=== PATIENT | female | born 2000 | race Two or more races ===

== ENCOUNTER 2024-04-12 19:13 | Emergency (ER) | payer MEDICAID, OTHER ==
[~2024-04-12] VITALS: Ht 157.5 cm; Wt 67.7 kg
[2024-04-12 20:36] LABS: Basophils # (auto) 0.1 10 ^3/uL (0-0.2); Basophils % (auto) 1.1 % (0.0-2.0); Eosinophils # (auto) 0.1 10 ^3/uL (0-0.8); Eosinophils % (auto) 0.5 % (0.0-7.0); Hematocrit 38.3 % (36.0-46.0); Hemoglobin 12.6 g/dL (12.2-16.2); Lymphocytes # (auto) 2.1 10 ^3/uL (0.4-5.4); Lymphocytes % (auto) 18.9 % (10.0-50.0); Mean Corpuscular Hemoglobin 27.7 pg (28.0-32.0); Mean Corpuscular Hgb Conc. 32.8 g/dL (32.0-36.0); Mean Corpuscular Volume 84.3 fL (80.0-100.0); Monocytes # (auto) 0.6 10 ^3/uL (0-1.3); Monocytes % (auto) 5.4 % (0.0-12.0); Neutrophils # (auto) 8.1 10 ^3/uL (1.6-8.6); Neutrophils % (auto) 74.1 % (37.0-80.0); Platelet Count (auto) 312 10^3/uL (140-450); Red Blood Cells 4.54 10^6/uL (4.0-5.20); Red Cell Distribution Width 13.8 % (11.8-14.3); White Blood Cell 10.9 10^3/uL (4.4-10.8)
[2024-04-12 20:38] LABS: Potassium 4.3 mmol/L (3.5-5.1); Sodium 139 mmol/L (136-145)
[2024-04-12 20:39] LABS: Anion Gap 8 (5-15); Carbon Dioxide 24 mmol/L (20-31)
[2024-04-12 20:40] LABS: Calcium 10.2 mg/dL (8.7-10.4)
[2024-04-12 20:41] LABS: Chloride 107 mmol/L (98-107)
--- NOTE | 2024-04-12 20:44 | DVH ---
LIMITED OB ULTRASOUND > 14 WKS: HISTORY: abd pain TECHNIQUE: Multiple real-time grayscale images of the gravid uterus with duplex Doppler color flow an d M-mode spectral analysis. TRANSDUCER: Trans abdominal FINDINGS: IUP single live fetus at 19 weeks 2 based on composite averages of the BPD, head circumference, abdom inal circumference and femur length Estimated weight 274 grams heart rate 149 beats per minute CLAUDIO adequate cm Cervix 3.65 cm Presentation:Transverse head on maternal right Posterior Grade 2 Placenta without previa or abruption. IMPRESSION: 1. IUP single live fetus at weeks 2 days AUA corresponding to an RIZWANA of 09/04/2024 2. FHR: 149 bpm HS:Y
[2024-04-12 20:45] LABS: BUN/Creatinine Ratio 10.7 (10.0-20.0)
[2024-04-12 21:38] LABS: Blood Urea Nitrogen 6 mg/dL (9-23); Glucose 132 mg/dL (74-106)
[2024-04-13 00:21] VITALS: BP 128/84; PULSE 86; RESP 18; TEMP 98.3; O2SAT 99
[2024-04-13 01:51] LABS: Urine Bacteria MANY /hpf (None Seen); Urine Blood Negative /uL (Negative); Urine Clarity Turbid (Clear); Urine Color Light-Yellow (Yellow); Urine Mucus FEW (None Seen); Urine Protein, UAD TRACE (Negative); Urine Specific Gravity 1.024 (1.001-1.035); Urine Squamous Epithelial Cell MOD /hpf (<5); Urine Urobilinogen Normal (Negative); Urine WBC 4 /hpf (0 - 5); Urine pH 5.5 (5.0-9.0)
[2024-04-13] MEDS ORDERED: NITR-87 PO (02:28)
--- NOTE | 2024-04-13 02:28 | ED.PDOC ---
GI ASSESSMENT HPI Comments 23-year-old female complaining of left-sided abdominal pain. Patient states pain started today. Patient was says she was 19 weeks . No vaginal bleeding no cramping. Nothing makes it better, nothing makes it worse. Has not noticed some increased urinary frequency. Chief Complaint: Abdominal Pain Time Seen by MD: 19:51 Reviewed Notes: Nurses Notes Allergies: Coded Allergies: NO KNOWN ALLERGIES (Unverified , 04/12/24) Information Source: Patient Mode of Arrival: Ambulatory Past Medical History PAST MEDICAL HISTORY: Denies Surgical History: Denies all surgeries DATA PROCESSING MANAGER History: No Pertinent DATA PROCESSING MANAGER History Constitutional: denies: chills, diaphoresis, fatigue, fever, malaise, sweats, weakness, others EENTM: denies: blurred vision, double vision, ear bleeding, ear discharge, ear drainage, ear pain, ear ringing, eye pain, eye redness, hearing loss, mouth pain, mouth swelling, nasal discharge, nose bleeding, nose congestion, nose pain, photophobia, tearing, throat pain, throat swelling, voice changes, others Respiratory: denies: cough, hemoptysis, orthopnea, SOB at rest, shortness of breath, SOB with excertion, stridor, wheezing, others Cardiovascular: denies: chest pain, dizzy spells, diaphoresis, Dyspnea on exertion, edema, irregular heart beat, left arm pain, lightheadedness, palpitations, PND, syncope, others Gastrointestinal: reports: nausea; denies: abdomen distended, abdominal pain, blood streaked bowels, constipated, diarrhea, dysphagia, difficulty swallowing, hematemesis, melena, poor appetite, poor fluid intake, rectal bleeding, rectal pain, vomiting, others Genitourinary: reports: frequency; denies: abnormal vagina bleeding, burning, dyspareunia, dysuria, flank pain, hematuria, incontinence, pain, , vagina discharge, urgency, others Neurological: denies: dizziness, fainting, headache, left sided numbness, left sided weakness, numbness, paresthesia, pre-existing deficit, right sided numbness, right sided weakness, seizure, speech problems, tingling, tremors, weakness, others Musculoskeletal: denies: back pain, gout, joint pain, joint swelling, muscle pain, muscle stiffness, neck pain, others Integumetry: denies: bruises, change in color, change in hair/nails, dryness, laceration, lesions, lumps, rash, wounds, others Physical Exam General Appearance: No Apparent Distress, Normal HEENT: Normal ENT Inspection, Pharynx Normal, TMs Normal Neck: Full Range of Motion, Non-Tender, Normal, Normal Inspection Respiratory: Chest Non-Tender, Lungs Clear, No Accessory Muscle Use, No Respiratory Distress, Normal Breath Sounds Cardiovascular: No Edema, No JVD, No Murmur, No Gallop, Normal Peripheral Pulses, Regular Rate/Rhythm Breast Exam: Deferred Gastrointestinal: No Organomegaly, Non Tender, No Pulsatile Mass, Normal Bowel Sounds, Soft Genitalia: Deferred Pelvic: Deferred Rectal: Deferred Extremities: No calf tenderness, Normal capillary refill, Normal inspection, Normal range of motion, Non-tender, No pedal edema Musculoskeletal : Apperance: Normal Neurologic: Alert, animal daycare provider II-XII nml as Tested, No Motor Deficits, Normal Affect, Normal Mood, No Sensory Deficits Cerebellar Function: Normal Reflexes: Normal Skin: Dry, Normal Color, Warm Lymphatic: No Adenopathy Was a procedure done? Was a procedure done?: No GI differential Dx Differential Diagnosis: Appendicitis, Complete , Incomplete , Inevitable , Gastritis/PUD, Gastroenteritis, GI hemorrhage X-Ray, Labs, Meds, VS Vital Signs Date Time Temp Pulse Resp B/P (MAP) Pulse Ox O2 Delivery O2 Flow Rate FiO2 04/13/24 00:21 86 18 99 Room Air* 0 21 04/13/24 00:21 98.3 76 18 128/84 (99) 98 98.3 04/12/24 19:58 97.8 96 17 100/59 (73) 99 Lab Test 04/13/24 00:11 04/12/24 20:07 Range/Units Urine Color Light-yellow Yellow Urine Clarity Turbid H Clear Urine pH 5.5 5.0-9.0 Urine Specific [place] 1.024 1.001-1.035 Urine Protein Trace H Negative Urine Ketones Trace Negative Urine Blood Negative Negative /uL Urine Nitrite Negative Negative Urine Bilirubin Negative Negative Urine Urobilinogen Normal Negative mg/dL Urine Leukocyte Esterase Negative Negative /uL Urine RBC 4 0 - 4 /hpf Urine WBC 4 0 - 5 /hpf Urine Squamous Epithelial Cells Mod <5 /hpf Urine Calcium Oxalate Crystals Few None Seen Urine Bacteria Many H None Seen /hpf Urine Mucus Few None Seen Urine Glucose Trace Normal mg/dL White Blood Count 10.9 H 4.4-10.8 10^3/uL Red Blood Count 4.54 4.0-5.20 10^6/uL Hemoglobin 12.6 12.2-16.2 g/dL Hematocrit 38.3 36.0-46.0 % Mean Corpuscular Volume 84.3 80.0-100.0 fL Mean Corpuscular Hemoglobin 27.7 L 28.0-32.0 pg Mean Corpuscular Hemoglobin Concent 32.8 32.0-36.0 g/dL Red Cell Distribution Width 13.8 11.8-14.3 % Platelet Count 312 140-450 10^3/uL Mean Platelet Volume 8.1 6.9-10.8 fL Neutrophils (%) (Auto) 74.1 37.0-80.0 % Lymphocytes (%) (Auto) 18.9 10.0-50.0 % Monocytes (%) (Auto) 5.4 0.0-12.0 % Eosinophils (%) (Auto) 0.5 0.0-7.0 % Basophils (%) (Auto) 1.1 0.0-2.0 % Neutrophils # (Auto) 8.1 1.6-8.6 10 ^3/uL Lymphocytes # (Auto) 2.1 0.4-5.4 10 ^3/uL Monocytes # (Auto) 0.6 0-1.3 10 ^3/uL Eosinophils # (Auto) 0.1 0-0.8 10 ^3/uL Basophils # (Auto) 0.1 0-0.2 10 ^3/uL Nucleated Red Blood Cells 0.0 % Sodium Level 139 136-145 mmol/L Potassium Level 4.3 3.5-5.1 mmol/L Chloride Level 107 98-107 mmol/L Carbon Dioxide Level 24 20-31 mmol/L Anion Gap 8 5-15 Blood Urea Nitrogen 6 L 9-23 mg/dL Creatinine 0.56 0.550-1.02 mg/dL Glomerular Filtration Rate Calc 130 >90 mL/min BUN/Creatinine Ratio 10.7 10.0-20.0 Serum Glucose 132 H 74-106 mg/dL Calcium Level 10.2 8.7-10.4 mg/dL Lipase 37 12-53 U/L Beta HCG, Quantitative 05230.7 H 1.5-4.2 mIU/mL X-Ray, Labs, Meds, VS Comment Imaging: X-rays and CT scans were reviewed and interpreted by this provider, imaging shows no fractures and no pathological disease. Pending radiology review. Laboratory: Labs reviewed and interpreted by this provider. No significant abnormalities noted. Patient has prior medical visits reviewed. Med reconciliation performed Vital signs reviewed Time of 1ST Reevaluation: 02:28 Reevaluation 1ST: Improved Patient Education/Counseling: Diagnosis, Treatment, Need For Follow Up (Patient advised to follow-up in the emergency room in the next 24 to 48 hours if symptoms do not improve. Advised follow-up with PCP in the next 3 to 5 days. Patient verbalized understanding. ) Family Education/Counseling: Diagnosis Departure 1 Departure Time of Disposition: 02:26 Impression: Primary Impression: Urinary tract infection Qualified Codes: N30.01 - Acute cystitis with hematuria Disposition: HOME / SELF CARE / HOMELESS Condition: Fair e-Prescriptions Nitrofurantoin Monohydrate Mac (Macrobid) 100 Mg Cap 100 MG PO BID for 5 Days, #10 CAP Prov: MAGALI CAMACHO 04/13/24 Discharged With: Self Critical Care Note Critical Care Time?: No Stability Stability form required: No Heart Score Heart Score: Heart Score Response (Comments) Value History N/A 0 EKG N/A 0 Age N/A 0 Risk Factors N/A 0 Troponin N/A 0 Total 0 MGAALI CAMACHO Apr 13, 2024 02:28
== END 2024-04-13 02:58 | disposition home or self-care (01) ==
LOC: ER 19:13
DX: O23.42 Unspecified infection of urinary tract in pregnancy, second trimester (principal); N39.0 Urinary tract infection, site not specified; R10.2 Pelvic and perineal pain; Z3A.19 19 weeks gestation of pregnancy
CPT/HCPCS: 36415; 76805; 80048; 81001; 83690; 84702; 85025

== ENCOUNTER 2024-07-06 12:49 | Observation (INO) | payer MEDICAID ==
[~2024-07-06 12:49] MED LIST: NITR-87 PO
[2024-07-06] MEDS ORDERED: PREN-96 PO (14:23)
--- NOTE | 2024-07-06 16:05 | DVHDS2 ---
Physician Discharge Progress N Final Diagnosis: Abdominal pain Round ligament pain Operations or Procedures: Operations or Procedures NST Condition on Discharge: Stable Disposition: Home Discharge Instructions: Diet: Consistent carbohydrate Activity: No Restrictions, As Tolerated Medications: N/A Follow Up Care: Discharge Statement: "Patient was advised to return to the ER or call 911 if any headaches, dizziness, shortness of breath, chest pain, abdominal pain, bleeding, fevers, or worsening of medical condition. Patient was counseled about treatment plan, medications, possible side effects, patientverbalized understanding. All questions were answered to the best of my ability. This discharge took greater then 30 minutes in planning, reviewing documentation, counseling the patient, and discussing with other team members." Visit Coding OBGYN Date of Service: Jul 06, 2024 Billing Provider: ZO RAMIREZ DO DUST COLLECTOR ATTENDANT Common Visit Codes: 91317-DWK/OBS SAME DATE (MOD) DUST COLLECTOR ATTENDANT Procedure Codes: 18943-86- NON-STRESS TEST ZO RAMIREZ DO Jul 06, 2024 16:05
== END 2024-07-06 14:35 | disposition home or self-care (01) ==
LOC: LDRP 12:49 → UNDOADMOB 12:49 → LDRP 13:17
PROVIDERS: ADMIT Obstetrics & Gynecology; ATTEND Obstetrics & Gynecology
DX: O99.891 Other specified diseases and conditions complicating pregnancy (principal); R10.2 Pelvic and perineal pain; Z98.890 Other specified postprocedural states; Z79.899 Other long term (current) drug therapy; Z3A.31 31 weeks gestation of pregnancy
CPT/HCPCS: 59025; 81002; 94760; G0378

== ENCOUNTER 2024-07-21 14:05 | Observation (INO) | payer MEDICAID ==
[~2024-07-21 14:05] MED LIST changes: +PREN-96 PO
--- NOTE | 2024-07-21 15:23 | DVH ---
BIOPHYSICAL PROFILE HISTORY: GDM TECHNIQUE: Multiple transabdominal real-time grayscale sonographic images through the gravid uterus of the fetus with duplex Doppler color flow and M-mode spectral analysis FINDINGS: BIOPHYSICAL PROFILE: breathing score: 2 movement score: 2 tone score: 2 Quantitative CLAUDIO score: (CLAUDIO: Cm.) Total score: 8/8 The cervix not measured Single live fetus in cephalic presentation. heart rate 153 beats per minute. Posterior Grade 1 placenta without previa or abruption Single live fetus at 33 weeks 4 days Biophysical profile score 8/8 corresponding to an RIZWANA of 09/04/2024 OB ULTRASOUND COMPLETE: HISTORY: GDM TECHNIQUE: Multiple transabdominal real-time grayscale images of the gravid uterus with duplex Dopple r color flow and M-mode spectral analysis. FINDINGS: IUP single live fetus at 33 weeks 4 days average ultrasound age (AUA) based on composite averages of the BPD, head circumference, abdominal circumference and femur length Estimated weight not calculi heart rate 153 beats per minute Amniotic fluid 2, CLAUDIO 20.5 cm Cephalic Presentation Posterior Grade 1 Placenta without previa or abruption Cervix is not well visualized. IMPRESSION: 1. IUP single live fetus at 33 weeks 4 days AUA corresponding to an RIZWANA of 09/04/2024. No abnormality detected. Estimated weight not calculated g Incomplete anatomy evaluation. IMPRESSION: 1. Biophysical profile score: 8/8 HS:Y
--- NOTE | 2024-07-21 15:31 | DVHDS2 ---
Physician Discharge Progress N Final Diagnosis: testing for GDM, A2 Secondary Diagnosis: rule out cholestasis Operations or Procedures: Operations or Procedures S: 23yo IUP@33.4wks, +FM, denies UCs/LOF/VB, think she is taking glyburide for her GDM, A2. c/o itching after taking it all over her body/palms/soles of feet. She did not take glyburide today and denies itching. PNC with Dr. Ellsworth at [facility]. O: VSS NST reactive Laboratory Tests Test 07/21/24 15:01 07/21/24 15:32 Range/Units POC Glucose 116 H 70-106 mg/dl White Blood Count 7.1 4.4-10.8 10^3/uL Red Blood Count 4.40 4.0-5.20 10^6/uL Hemoglobin 12.0 L 12.2-16.2 g/dL Hematocrit 36.6 36.0-46.0 % Mean Corpuscular Volume 83.2 80.0-100.0 fL Mean Corpuscular Hemoglobin 27.4 L 28.0-32.0 pg Mean Corpuscular Hemoglobin Concent 32.9 32.0-36.0 g/dL Red Cell Distribution Width 13.7 11.8-14.3 % Platelet Count 251 140-450 10^3/uL Mean Platelet Volume 8.9 6.9-10.8 fL Neutrophils (%) (Auto) 71.8 37.0-80.0 % Lymphocytes (%) (Auto) 20.2 10.0-50.0 % Monocytes (%) (Auto) 6.4 0.0-12.0 % Eosinophils (%) (Auto) 1.2 0.0-7.0 % Basophils (%) (Auto) 0.4 0.0-2.0 % Neutrophils # (Auto) 5.1 1.6-8.6 10 ^3/uL Lymphocytes # (Auto) 1.4 0.4-5.4 10 ^3/uL Monocytes # (Auto) 0.5 0-1.3 10 ^3/uL Eosinophils # (Auto) 0.1 0-0.8 10 ^3/uL Basophils # (Auto) 0 0-0.2 10 ^3/uL Nucleated Red Blood Cells 0.1 % Sodium Level 137 136-145 mmol/L Potassium Level 3.9 3.5-5.1 mmol/L Chloride Level 105 98-107 mmol/L Carbon Dioxide Level 24 20-31 mmol/L Anion Gap 8 5-15 Blood Urea Nitrogen 6 L 9-23 mg/dL Creatinine 0.42 L 0.550-1.02 mg/dL Glomerular Filtration Rate Calc 139 >90 mL/min BUN/Creatinine Ratio 14.3 10.0-20.0 Serum Glucose 100 74-106 mg/dL Hemoglobin A1c 5.6 <5.7 % A1C Calcium Level 9.8 8.7-10.4 mg/dL Total Bilirubin 0.2 0.2-1.0 mg/dL Aspartate Amino Transferase (AST) 11 L 13-40 U/L Alanine Aminotransferase (ALT) 11 7-40 U/L Alkaline Phosphatase 122 H 46-116 U/L Total Protein 6.8 5.7-8.2 g/dL Albumin 4.1 3.2-4.8 g/dL A: 23yo IUP@33.4wks GDM, A2 rule out cholestasis P: D/C home FKC/PTL precautions reviewed. Dr. Ellsworth consulted, wants pt to see Jyoti Santos [facility] for GDM education 07/22/24 at 1000 so they can order bile acids in the office. Then pt to f/u with Dr. Ellsworth at [facility] on 07/26/24. Other Interventions Other Interventions [place] [id number] Ph: [phone] DIAGNOSTIC IMAGING Diagnostic Imaging Report : [id number] Signed PATIENT: JOSE G COLEMAN ACCT: [id number] UNIT: [id number] : 2000 LOC: [facility] ROOM / BED: [facility] / A AGE / SEX: 23 / F ADM STATUS: ADM IN SERVICE 1411 ORDERING PHYSICIAN: RE ELLSWORTH DO PROCEDURE(s): BPP - BIOPHYSICAL PROFILE REASON: GDM ORDER NUMBER(s): [id number], ACCESSION NUMBER(s): [id number] BIOPHYSICAL PROFILE HISTORY: GDM TECHNIQUE: Multiple transabdominal real-time grayscale sonographic images through the gravid uterus of the fetus with duplex Doppler color flow and M-mode spectral analysis FINDINGS: BIOPHYSICAL PROFILE: breathing score: 2 movement score: 2 tone score: 2 Quantitative CLAUDIO score: (CLAUDIO: Cm.) Total score: 8/8 The cervix not measured Single live fetus in cephalic presentation. heart rate 153 beats per minute. Posterior Grade 1 placenta without previa or abruption Single live fetus at 33 weeks 4 days Biophysical profile score 8/8 corresponding to an RIZWANA of 09/04/2024 OB ULTRASOUND COMPLETE: HISTORY: GDM TECHNIQUE: Multiple transabdominal real-time grayscale images of the gravid uterus with duplex Doppler color flow and M-mode spectral analysis. FINDINGS: IUP single live fetus at 33 weeks 4 days average ultrasound age (AUA) based on composite averages of the BPD, head circumference, abdominal circumference and f emur length Estimated weight not calculi heart rate 153 beats per minute Amniotic fluid 2, CLAUDIO 20.5 cm Cephalic Presentation Posterior Grade 1 Placenta without previa or abruption Cervix is not well visualized. IMPRESSION: 1. IUP single live fetus at 33 weeks 4 days AUA corresponding to an RIZWANA of 09/04/2024. No abnormality detected. Estimated weight not calculated g Incomplete anatomy evaluation. IMPRESSION: 1. Biophysical profile score: 8/8 HS:Y ATED BY: JANET MCKEON Jr., DO DICTATED DATE/TIME: 07/21/24 1521 SIGNED BY: JANET MCKEON Jr., DO SIGNED DATE/TIME: 07/21/24 1521 CC: Condition on Discharge: Stable Disposition: Home Discharge Instructions: Diet: Consistent carbohydrate Activity: No Restrictions, As Tolerated Medications: see med list Follow Up Care: Specialist: f/u twice weekly for NST/BPP Discharge Statement: "Patient was advised to return to the ER or call 911 if any headaches, dizziness, shortness of breath, chest pain, abdominal pain, bleeding, fevers, or worsening of medical condition. Patient was counseled about treatment plan, medications, possible side effects, patientverbalized understanding. All questions were answered to the best of my ability. This discharge took greater then 30 minutes in planning, reviewing documentation, counseling the patient, and discussing with other team members." Visit Coding OBN Date of Service: Jul 21, 2024 Billing Provider: VAISHALI WATKINS CNM PRINTED CIRCUIT BOARDS INSPECTOR Common Visit Codes: 94199-[id number] OBS CARE (HIGH) PRINTED CIRCUIT BOARDS INSPECTOR Procedure Codes: 61191-70- NON-STRESS TEST VAISHALI WATKINS CNM Jul 21, 2024 15:31
[2024-07-21 16:10] LABS: Basophils # (auto) 0 10 ^3/uL (0-0.2); Basophils % (auto) 0.4 % (0.0-2.0); Eosinophils # (auto) 0.1 10 ^3/uL (0-0.8); Eosinophils % (auto) 1.2 % (0.0-7.0); Hematocrit 36.6 % (36.0-46.0); Lymphocytes # (auto) 1.4 10 ^3/uL (0.4-5.4); Lymphocytes % (auto) 20.2 % (10.0-50.0); Mean Corpuscular Hemoglobin 27.4 pg (28.0-32.0); Mean Corpuscular Hgb Conc. 32.9 g/dL (32.0-36.0); Mean Corpuscular Volume 83.2 fL (80.0-100.0); Monocytes # (auto) 0.5 10 ^3/uL (0-1.3); Monocytes % (auto) 6.4 % (0.0-12.0); Neutrophils # (auto) 5.1 10 ^3/uL (1.6-8.6); Neutrophils % (auto) 71.8 % (37.0-80.0); Nucleated Red Blood Cells % 0.1 %; Platelet Count (auto) 251 10^3/uL (140-450); Red Cell Distribution Width 13.7 % (11.8-14.3); White Blood Cell 7.1 10^3/uL (4.4-10.8)
[2024-07-21 16:23] LABS: Alanine Aminotransferase 11 U/L (7-40); Albumin 4.1 g/dL (3.2-4.8); Anion Gap 8 (5-15); BUN/Creatinine Ratio 14.3 (10.0-20.0); Calcium 9.8 mg/dL (8.7-10.4); Carbon Dioxide 24 mmol/L (20-31); Chloride 105 mmol/L (98-107); Glucose 100 mg/dL (74-106); Potassium 3.9 mmol/L (3.5-5.1); Sodium 137 mmol/L (136-145); Total Protein 6.8 g/dL (5.7-8.2)
[2024-07-21 16:29] LABS: Alkaline Phosphatase 122 U/L (46-116); Aspartate Aminotransferase 11 U/L (13-40); Bilirubin, Total 0.2 mg/dL (0.2-1.0); Blood Urea Nitrogen 6 mg/dL (9-23)
== END 2024-07-21 16:50 | disposition home or self-care (01) ==
LOC: LDRP 14:05 → UNDOADMOB 14:05 → LDRP 14:12
PROVIDERS: ADMIT Obstetrics & Gynecology; ATTEND Obstetrics & Gynecology
DX: O24.419 Gestational diabetes mellitus in pregnancy, unspecified control (principal); Z3A.33 33 weeks gestation of pregnancy; Z79.899 Other long term (current) drug therapy
CPT/HCPCS: 36415; 59025; 76819; 80053; 81002; 82962; 83036; 85025; 94760; G0378

== ENCOUNTER 2024-07-23 07:28 | Observation (INO) | payer MEDICAID ==
--- NOTE | 2024-07-23 15:28 | DVH ---
BIOPHYSICAL PROFILE HISTORY: GDMA2 TECHNIQUE: Multiple real-time grayscale sonographic images through the gravid uterus of the fetus wi th duplex Doppler color flow. FINDINGS: BIOPHYSICAL PROFILE: breathing score: 2 movement score: 2 tone score: 2 Quantitative CLAUDIO score: 2 Total score: 8 out of 8 The placenta is posteriorly positioned. CLAUDIO 18.1 cm. Single live fetus in cephalic presentation. heart rate 132 beats per minute. IMPRESSION: 1. Biophysical profile score: 8 out of 8
== END 2024-07-23 15:39 | disposition home or self-care (01) ==
LOC: LDRP 14:05 → UNDOADMOB 14:05 → LDRP 14:14
PROVIDERS: ADMIT Obstetrics & Gynecology; ATTEND Obstetrics & Gynecology
DX: O24.419 Gestational diabetes mellitus in pregnancy, unspecified control (principal); Z3A.33 33 weeks gestation of pregnancy; Z79.899 Other long term (current) drug therapy; Z98.890 Other specified postprocedural states
CPT/HCPCS: 59025; 76819; 81002; 82948; 94760; G0378

== ENCOUNTER 2024-07-27 06:09 | Observation (INO) | payer MEDICAID ==
[~2024-07-27] VITALS: Ht 157.5 cm; Wt 73.5 kg
--- NOTE | 2024-08-09 20:06 | DVH ---
Procedure: US BIOPHYSICAL PROFILE 08/09/2024 07:47 PM Indication: GDMA2 Comparison: US BIOPHYSICAL PROFILE on DOS: 08/05/24, US BIOPHYSICAL PROFILE on DOS: 07/29/24, US BIOPHY SICAL PROFILE on DOS: 07/23/24 Technique: Sonogram of gravid uterus utilizing grayscale and color techniques. FINDINGS: Single living intrauterine gestation. Presentation: Cephalic Placenta: Posterior heart rate: 143 bpm CLAUDIO: 22.7 cm Biophysical Profile: breathing score: 2 movement score: 2 tone: 2 Quantitative CLAUDIO score: 2 Total score: 8/8 IMPRESSION: 1. Single living as above. 2. Biophysical profile score: 8/8.
--- NOTE | 2024-08-09 22:55 | DVHDS2 ---
Discharge Summary Date of Admission Aug 09, 2024 at 19:06 Date of Discharge: Aug 09, 2024 Admitting Diagnosis GDM A2 monitoring Labs/Diagnostic Data: Laboratory Results Test 08/09/24 19:39 POC Glucose 125 mg/dl (70-106) Brief Hx & Hospital Course: NST US only Condition at Discharge: Good Final Diagnosis/Problems List same Discharge Disposition: Home Discharge Instruct/Medications Diet: Consistent carbohydrate Activity: No Restrictions, As Tolerated Follow Up/Referral: as scheduled Kick counts labor precautions Discharge Statement: "Patient was advised to return to the ER or call 911 if any headaches, dizziness, shortness of breath, chest pain, abdominal pain, bleeding, fevers, or worsening of medical condition. Patient was counseled about treatment plan, medications, possible side effects, patientverbalized understanding. All questions were answered to the best of my ability. This discharge took greater then 30 minutes in planning, reviewing documentation, counseling the patient, and discussing with other team members." ASSESSMENT ASSESSMENT Assessment Visit Coding OBGYN Date of Service: Aug 09, 2024 Billing Provider: EDUAR MCCONNELL DO TEST TECHNICIAN Common Visit Codes: 65377-EIJ/OBS SAME DATE (LOW), 53576-LRN/OBS SAME DATE (MOD), 37679-ZKR/OBS SAME DATE (HIGH) TEST TECHNICIAN Procedure Codes: 02388-98- NON-STRESS TEST EDUAR MCCONNELL DO Aug 09, 2024 22:55
== END 2024-08-09 21:16 | disposition home or self-care (01) ==
LOC: LDRP 08-09 19:06
PROVIDERS: ADMIT Obstetrics & Gynecology; ATTEND Obstetrics & Gynecology
DX: O24.419 Gestational diabetes mellitus in pregnancy, unspecified control (principal); Z3A.36 36 weeks gestation of pregnancy; Z79.899 Other long term (current) drug therapy
CPT/HCPCS: 59025; 76819; 81002; 82948; 82962; 94760; G0378

== ENCOUNTER 2024-07-29 18:52 | Observation (INO) | payer MEDICAID ==
[~2024-07-29] VITALS: Ht 154.9 cm; Wt 73.5 kg
[2024-07-29] MEDS: TERBUTALINE SULFATE 1 MG/ML 1ML VIAL SC SCH (20:11)
[2024-07-29] MEDS: TERBUTALINE SULFATE 1 MG/ML 1ML VIAL SC ONE (20:12)
--- NOTE | 2024-07-29 20:42 | DVH ---
BIOPHYSICAL PROFILE HISTORY: GDMA1 Comparison Study: None available at time of dictation. TECHNIQUE: Multiple real-time grayscale sonographic images through the gravid uterus of the fetus wi th duplex Doppler color flow and M-mode spectral analysis FINDINGS: Fetus is in cephalic position there is no evidence for placenta previa . head is shadowing the cervix. Amniotic fluid index is 19.27 cm with deepest pocket = 6.29 cm. Cervical length is 3.26 cm. Heart rate is 133 beats per minute. Placenta is posterior. Appears to be unremarkable breathing = 2/2. movements = 2/2. tone = 2/2. Amniotic fluid index = 2/2. Total biophysical profile 8/8. IMPRESSION: 1. Generally unremarkable examination with biophysical score = 8/8
--- NOTE | 2024-07-30 02:32 | DVHDS2 ---
Physician Discharge Progress N Final Diagnosis: IUP at 31.5 weeks Secondary Diagnosis: GDM A1 Operations or Procedures: Operations or Procedures NST: Reactive Other Interventions Other Interventions BPP: 11/19 with an CLAUDIO of 19.2 cm Commentary: Commentary 23 y o presented to L&D for scheduled NST/BPP due to GDM. Category 1 tracing which also exhibited UC, now resolved with 2 doses of Terbutaline. Condition on Discharge: Stable Disposition: Home Discharge Instructions: Diet: Consistent carbohydrate Activity: No Restrictions, As Tolerated Follow Up/Referral: Continue surveillance biweekly and Follow up with Dr Ellsworth as scheduled Medications: Continue vitamina daily Follow Up Care: Primary Care Provider: Dr Ellsworth Discharge Statement: "Patient was advised to return to the ER or call 911 if any headaches, dizziness, shortness of breath, chest pain, abdominal pain, bleeding, fevers, or worsening of medical condition. Patient was counseled about treatment plan, medications, possible side effects, patientverbalized understanding. All questions were answered to the best of my ability. This discharge took greater then 30 minutes in planning, reviewing documentation, counseling the patient, and discussing with other team members." Discharge Care Plan Instructions As stated above Visit Coding OBGYN Date of Service: Jul 29, 2024 Billing Provider: CHRISTIANO DU CNM COURT COLLECTIONS OFFICER Common Visit Codes: 92390-MMDRISO OBS CARE (HIGH) CHRISTIANO DU CNM Jul 30, 2024 02:32
== END 2024-07-29 22:27 | disposition home or self-care (01) ==
LOC: LDRP 18:52
PROVIDERS: ADMIT Obstetrics & Gynecology; ATTEND Obstetrics & Gynecology
DX: O24.419 Gestational diabetes mellitus in pregnancy, unspecified control (principal); Z3A.31 31 weeks gestation of pregnancy; Z79.899 Other long term (current) drug therapy
CPT/HCPCS: 59025; 76819; 81002; 82948; 82962; 94760; 96372; G0378; J3105

== ENCOUNTER 2024-08-05 19:00 | Observation (INO) | payer MEDICAID ==
--- NOTE | 2024-08-05 20:46 | DVH ---
ULTRASOUND BIOPHYSICAL PROFILE CLINICAL HISTORY: GDMA1 COMPARISON: US BIOPHYSICAL PROFILE on DOS: 07/29/24 TECHNIQUE: Grayscale imaging of the pelvis is performed FINDINGS: Single living intrauterine gestation. Cephalic presentation. heart rate 153 beats per minute. Amniotic fluid index: 21.6cm Biophysical profile: 8 out of 8. (2 breathing, 2 activity, 2 tone, 2 CLAUDIO) IMPRESSION: Biophysical profile score 8/8.
--- NOTE | 2024-08-06 14:26 | DVHDS2 ---
Physician Discharge Progress N Final Diagnosis: gdm Operations or Procedures: Operations or Procedures nst,sono Condition on Discharge: Good Disposition: Home Discharge Instructions: Diet: Consistent carbohydrate Activity: No Restrictions, As Tolerated Medications: na Follow Up Care: Specialist: 3d Discharge Statement: "Patient was advised to return to the ER or call 911 if any headaches, dizziness, shortness of breath, chest pain, abdominal pain, bleeding, fevers, or worsening of medical condition. Patient was counseled about treatment plan, medications, possible side effects, patientverbalized understanding. All questions were answered to the best of my ability. This discharge took greater then 30 minutes in planning, reviewing documentation, counseling the patient, and discussing with other team members." Visit Coding OBGYN Date of Service: Aug 05, 2024 Billing Provider: RE WORTHINGTON DO SAP BUSINESS INTELLIGENCE CONSULTANT Common Visit Codes: 53640-[id number] OBS CARE (HIGH) SAP BUSINESS INTELLIGENCE CONSULTANT Procedure Codes: 71425-68- NON-STRESS TEST RE WORTHINGTON DO Aug 06, 2024 14:26
== END 2024-08-05 20:22 | disposition home or self-care (01) ==
LOC: LDRP 19:00
PROVIDERS: ADMIT Obstetrics & Gynecology; ATTEND Obstetrics & Gynecology
DX: O24.419 Gestational diabetes mellitus in pregnancy, unspecified control (principal); Z98.890 Other specified postprocedural states; Z79.899 Other long term (current) drug therapy; Z3A.35 35 weeks gestation of pregnancy
CPT/HCPCS: 59025; 76819; 81002; 82948; 82962; 94760; G0378

== ENCOUNTER 2024-08-12 08:26 | Observation (INO) | payer MEDICAID ==
[~2024-08-12] VITALS: Ht 157.5 cm; Wt 73.9 kg
--- NOTE | 2024-08-18 20:30 | DVH ---
BIOPHYSICAL PROFILE HISTORY: GDM A2 TECHNIQUE: Multiple transabdominal real-time grayscale sonographic images through the gravid uterus of the fetus with duplex Doppler color flow and M-mode spectral analysis FINDINGS: BIOPHYSICAL PROFILE: breathing score: 2 movement score: 2 tone score: 2 Quantitative CLAUDIO score: 2 (CLAUDIO: 219 Cm.) Total score: 8/8 The cervix not provided Single live fetus in vertex presentation. heart rate 135 beats per minute. Grade 3 fundal placenta without previa or abruption Single live fetus at 37 weeks 4 days Biophysical profile score 8/8 corresponding to an RIZWANA of 09/04/2024 IMPRESSION: 1. Biophysical profile score: 8/8
--- NOTE | 2024-08-18 22:17 | DVHDS2 ---
Physician Discharge Progress N Final Diagnosis: testing for GDM, A2 Operations or Procedures: Operations or Procedures 23yo IUP@37.4wks, taking insulin VSS NST reactive BPP wnl FKC/Labor precautions reviewed Dr. Ellsworth consulted, agrees with POC. Condition on Discharge: Stable Disposition: Home Discharge Instructions: Diet: Consistent carbohydrate Activity: No Restrictions, As Tolerated Medications: see med list Follow Up Care: Specialist: f/u in 3 days Discharge Statement: "Patient was advised to return to the ER or call 911 if any headaches, dizziness, shortness of breath, chest pain, abdominal pain, bleeding, fevers, or worsening of medical condition. Patient was counseled about treatment plan, medications, possible side effects, patient�verbalized understanding. All questions were answered to the best of my ability. This discharge took greater then 30 minutes in planning, reviewing documentation, counseling the patient, and discussing with other team members." Visit Coding OBGYN Date of Service: August 18, 2024 Billing Provider: VAISHALI WATKINS CNM MUSIC RESEARCHER Common Visit Codes: [id number] OBS CARE (HIGH) MUSIC RESEARCHER Procedure Codes: 42535-43- NON-STRESS TEST VAISHALI WATKINS CNM August 18, 2024 22:17
== END 2024-08-18 20:40 | disposition home or self-care (01) ==
LOC: LDRP 08-18 18:54
PROVIDERS: ADMIT Obstetrics & Gynecology; ATTEND Obstetrics & Gynecology
DX: O24.419 Gestational diabetes mellitus in pregnancy, unspecified control (principal); Z3A.37 37 weeks gestation of pregnancy; Z79.899 Other long term (current) drug therapy
CPT/HCPCS: 59025; 76819; 81002; 82948; 82962; 94760; G0378

== ENCOUNTER → 2024-08-18 | Outpatient (CLI) | payer MEDICAID ==
[2024-08-18 12:17] LABS: Basophils # (auto) 0.1 10 ^3/uL (0-0.2); Basophils % (auto) 1.1 % (0.0-2.0); Eosinophils # (auto) 0 10 ^3/uL (0-0.8); Eosinophils % (auto) 0.5 % (0.0-7.0); Hematocrit 36.5 % (36.0-46.0); Hemoglobin 12.5 g/dL (12.2-16.2); Lymphocytes # (auto) 1.6 10 ^3/uL (0.4-5.4); Lymphocytes % (auto) 19.6 % (10.0-50.0); Mean Corpuscular Hemoglobin 27.4 pg (28.0-32.0); Mean Corpuscular Hgb Conc. 34.2 g/dL (32.0-36.0); Mean Corpuscular Volume 80.2 fL (80.0-100.0); Monocytes # (auto) 0.6 10 ^3/uL (0-1.3); Monocytes % (auto) 7.5 % (0.0-12.0); Neutrophils # (auto) 5.8 10 ^3/uL (1.6-8.6); Neutrophils % (auto) 71.3 % (37.0-80.0); Nucleated Red Blood Cells % 0.1 %; Platelet Count (auto) 227 10^3/uL (140-450); Red Blood Cells 4.55 10^6/uL (4.0-5.20); Red Cell Distribution Width 14.4 % (11.8-14.3); White Blood Cell 8.1 10^3/uL (4.4-10.8)
[2024-08-20 02:06] LABS: Chlamydia Trachomatis, NAA Negative (Negative); Neisseria gonorrhoeae, NAA Negative (Negative)
== END | disposition home or self-care (01) ==
LOC: LAB 11:49
PROVIDERS: ATTEND Obstetrics & Gynecology
DX: Z34.83 Encounter for supervision of other normal pregnancy, third trimester (principal); Z72.89 Other problems related to lifestyle; Z3A.37 37 weeks gestation of pregnancy
CPT/HCPCS: 36415; 85025; 86780

== ENCOUNTER 2024-08-22 07:52 | Observation (INO) | payer MEDICAID ==
--- NOTE | 2024-08-24 20:54 | DVH ---
Procedure: US BIOPHYSICAL PROFILE 08/24/2024 08:23 PM Indication: GDMA2 Comparison: US BIOPHYSICAL PROFILE on DOS: 08/18/24, US BIOPHYSICAL PROFILE on DOS: 08/09/24, US BIOPHYS ICAL PROFILE on DOS: 08/05/24 Technique: Sonogram of gravid uterus utilizing grayscale and color techniques. FINDINGS: Single living intrauterine gestation. Presentation: Cephalic Placenta: Fundal, no previa or abruption heart rate: 171 bpm CLAUDIO: 19.5 cm, DVP: 5.8 cm Maternal cervix: Not visualized Biophysical Profile: breathing score: 2 movement score: 2 tone: 2 Quantitative CLAUDIO score: 2 Total score: 8/8 IMPRESSION: 1. Single living as above. 2. Biophysical profile score: 8/8. 3. tachycardia, 171 beats per minute.
--- NOTE | 2024-08-25 02:51 | DVHDS2 ---
Physician Discharge Progress N Final Diagnosis: testing for GDM,A2 Operations or Procedures: Operations or Procedures 24yo iup@38.2wks, +FM, denies UCs/LOF/VB. reports drinking only two cups of water today VSS NST reactive (last 20 minutes) IV fluid bolus PO hydration FKC/Labor precautions reviewed Other Interventions Other Interventions [place] [address] Ph: [phone] DIAGNOSTIC IMAGING Diagnostic Imaging Report : [id number] Signed PATIENT: JOSE G COLEMAN ACCT: [id number] UNIT: [id number] : 2000 LOC: [facility] ROOM / BED: TRIAGE2 / A AGE / SEX: 24 / F ADM STATUS: ADM IN SERVICE 19 ORDERING PHYSICIAN: VAISHALI WATKINS CNM PROCEDURE(s): BPP - BIOPHYSICAL PROFILE REASON: GDMA2 ORDER NUMBER(s): [id number], ACCESSION NUMBER(s): [id number] Procedure: US BIOPHYSICAL PROFILE 08/24/2024 08:23 PM Indication: GDMA2 Comparison: US BIOPHYSICAL PROFILE on DOS: 08/18/24, US BIOPHYSICAL PROFILE on DOS: 08/09/24, US BIOPHYSICAL PROFILE on DOS: 08/05/24 Technique: Sonogram of gravid uterus utilizing grayscale and color techniques. FINDINGS: Single living intrauterine gestation. Presentation: Cephalic Placenta: Fundal, no previa or abruption heart rate: 171 bpm CLAUDIO: 19.5 cm, DVP: 5.8 cm Maternal cervix: Not visualized Biophysical Profile: breathing score: 2 movement score: 2 tone: 2 Quantitative CLAUDIO score: 2 Total score: 8/8 IMPRESSION: 1. Single living as above. 2. Biophysical profile score: 8/8. 3. tachycardia, 171 beats per minute. ATED BY: YESSY CARRILLO MD DICTATED DATE/TIME: 08/24/242051 SIGNED BY: YESSY CARRILLO MD SIGNED DATE/TIME: 08/24/242051 CC: Condition on Discharge: Stable Disposition: Home Discharge Instructions: Diet: Consistent carbohydrate Activity: No Restrictions, As Tolerated Medications: see med list Follow Up Care: Specialist: f/u in 3 days Discharge Statement: "Patient was advised to return to the ER or call 911 if any headaches, dizziness, shortness of breath, chest pain, abdominal pain, bleeding, fevers, or worsening of medical condition. Patient was counseled about treatment plan, medications, possible side effects, patientverbalized understanding. All questions were answered to the best of my ability. This discharge took greater then 30 minutes in planning, reviewing documentation, counseling the patient, and discussing with other team members." Visit Coding OBGYN Date of Service: August 24, 2024 Billing Provider: VAISHALI WATKINS CNM APPRENTICE PLANT ATTENDANT Common Visit Codes: [id number] OBS CARE (HIGH) APPRENTICE PLANT ATTENDANT Procedure Codes: 60862-43- NON-STRESS TEST VAISHALI WATKINS CNM August 25, 2024 02:51
== END 2024-08-24 22:38 | disposition home or self-care (01) ==
LOC: LDRP 08-24 19:26
PROVIDERS: ADMIT Obstetrics & Gynecology; ATTEND Obstetrics & Gynecology
DX: O24.419 Gestational diabetes mellitus in pregnancy, unspecified control (principal); Z3A.38 38 weeks gestation of pregnancy; Z79.899 Other long term (current) drug therapy; Z98.890 Other specified postprocedural states
CPT/HCPCS: 59025; 76819; 81002; 82948; 82962; 96360; G0378

== ENCOUNTER 2024-08-26 09:47 | Inpatient (IN) | payer MEDICAID ==
[~2024-08-26] VITALS: Ht 157.5 cm; Wt 73.9 kg
--- NOTE | 2024-08-26 11:03 | DVH ---
BIOPHYSICAL PROFILE HISTORY: GDMA2 Comparison Study: US BIOPHYSICAL PROFILE on DOS: 08/24/24, US BIOPHYSICAL PROFILE on DOS: 08/18/24, US B IOPHYSICAL PROFILE on DOS: 08/09/24 TECHNIQUE: Multiple real-time grayscale sonographic images through the gravid uterus of the fetus wit h duplex doppler color flow and M-mode spectral analysis FINDINGS: BIOPHYSICAL PROFILE: breathing score: 2 movement score: 2 tone score: 2 Quantitative CLAUDIO score: 2 (CLAUDIO: 15.2 cm.) Total score: 8/8 Single live fetus in cephalic presentation. heart rate 143 beats per minute. Grade 3 fundal placenta without previa or abruption Biophysical profile score 8/8 corresponding to an RIZWANA of 09/04/24 IMPRESSION: Biophysical profile score: 8/8
[2024-08-26 12:07] LABS: Urine Bacteria None Seen /hpf (None Seen)
[2024-08-26 12:08] LABS: Basophils # (auto) 0 10 ^3/uL (0-0.2); Basophils % (auto) 0.3 % (0.0-2.0); Eosinophils # (auto) 0 10 ^3/uL (0-0.8); Eosinophils % (auto) 0.4 % (0.0-7.0); Hematocrit 35.7 % (36.0-46.0); Hemoglobin 12.1 g/dL (12.2-16.2); Lymphocytes # (auto) 1.3 10 ^3/uL (0.4-5.4); Lymphocytes % (auto) 17.6 % (10.0-50.0); Mean Corpuscular Hemoglobin 27.5 pg (28.0-32.0); Monocytes # (auto) 0.5 10 ^3/uL (0-1.3); Monocytes % (auto) 6.7 % (0.0-12.0); Neutrophils # (auto) 5.5 10 ^3/uL (1.6-8.6); Nucleated Red Blood Cells % 0.1 %; Platelet Count (auto) 198 10^3/uL (140-450); Red Blood Cells 4.41 10^6/uL (4.0-5.20); Red Cell Distribution Width 14.2 % (11.8-14.3); White Blood Cell 7.4 10^3/uL (4.4-10.8)
[2024-08-26 12:16] LABS: Urine Blood Negative /uL (Negative); Urine Clarity Clear (Clear); Urine Color Light-Yellow (Yellow); Urine Protein, UAD Negative (Negative); Urine Specific Gravity 1.011 (1.001-1.035); Urine Squamous Epithelial Cell FEW /hpf (<5); Urine Urobilinogen Normal (Negative); Urine WBC 1 /HPF (0-5)
[2024-08-26 12:17] LABS: Albumin 3.9 g/dL (3.2-4.8); Anion Gap 10 (5-15); Aspartate Aminotransferase 14 U/L (13-40); BUN/Creatinine Ratio 15.7 (10.0-20.0); Carbon Dioxide 22 mmol/L (20-31); Chloride 106 mmol/L (98-107); Glucose 74 mg/dL (74-106); Potassium 3.8 mmol/L (3.5-5.1); Sodium 138 mmol/L (136-145); Total Protein 6.4 g/dL (5.7-8.2); Uric Acid 6.2 mg/dL (3.1-7.8)
[2024-08-26 12:18] LABS: Bilirubin, Total 0.3 mg/dL (0.2-1.0)
[2024-08-26 12:20] LABS: Alanine Aminotransferase < 9 U/L (7-40); Alkaline Phosphatase 151 U/L (46-116); Blood Urea Nitrogen 8 mg/dL (9-23)
--- NOTE | 2024-08-26 12:22 | DVH ---
LIMITED OB ULTRASOUND > 14 WKS: HISTORY: GDMA2 TECHNIQUE: Multiple real-time grayscale images of the gravid uterus with duplex Doppler color flow an d M-mode spectral analysis. TRANSDUCER: Transabdominal FINDINGS: IUP single live fetus at 37 weeks 2 days based on composite averages of the BPD, head circumference, abdominal circumference and femur length Estimated weight 3340 grams heart rate 145 beats per minute CLAUDIO 15.2 cm Cervix not well visualized. Cephalic Presentation Grade 3 fundal Placenta without previa or abruption. IMPRESSION: IUP single live fetus at 37 weeks 2 days AUA corresponding to an RIZWANA of 09/14/2024
[2024-08-26 12:25] LABS: INR 0.9 (0.9-1.15); Partial Thromboplastin Time 26.6 SEC (24.5-34.5); Prothrombin Time 9.6 sec (9.3-11.8)
[2024-08-26 12:27] LABS: Amphetamine Screen, Urine Neg (NEGATIVE); Barbiturate Scree,Urine Neg (NEGATIVE); Benzodiazephine Screen, Urine Neg (NEGATIVE); Cannabinoid Screen, Urine Neg (NEGATIVE); Cocaine Screen, Urine Neg (NEGATIVE); Opiate Scree,Urine Neg (NEGATIVE); Phencyclidine Screen, Urine Neg (NEGATIVE)
--- NOTE | 2024-08-26 12:36 | DVHHP2 ---
OB CC & HPI Date Date of Admission: August 26, 2024 Patient Identification: : 1 Para: 0 EDC: September 04, 2024 EGA: 38wks Chief Complaints: Reason for admission: rupture of membranes Admission Nurse Assessment Rev: No History of Present Complaints pt presents to [facility]p c/o leaking fld clear ,amnisure positive and fern positive pt has gdm but has been very noncompliant with it .she has missed her diabetic visits as well as her ob visits . Past Medical History Cardiac: No pertinent Hx Pulmonary: No pertinent Hx Central Nervous System: No pertinent Hx GI: No pertinent Hx Hemotology/Oncology: No pertinent Hx Hepatobiliary: No pertinent Hx Psychiatric: No pertinent Hx Musculoskeletal: No pertinent Hx Rheumotologic: No pertinent Hx Infectious Disease: No peritnent Hx ENT: No pertinent Hx Renal/: No pertinent Hx Endocrine: No pertinent Hx Dermatology: No pertinent Hx Past Surgical History: No pertinent Hx OB History OB History Care: Limited Care Ultrasounds: Normal mid trimester US Obstetrical Complications: Gestational Diabetes Medical Complications: None Allergies: Coded Allergies: Glyburide (Verified Allergy, Intermediate, hives, 08/05/24) Home Meds Active Scripts Nitrofurantoin Monohydrate Mac (Macrobid) 100 Mg Cap, 100 MG PO BID for 5 Days, #10 CAP Prov:MAGALI CAMACHO 04/13/24 Reported Medications Vit W/ Ferrous Fumara ( One Daily) Daily Tab, 1 TAB PO DAILY, #90 TAB 3 Refills 07/06/24 Family & Social History Family/Social History Blood Type: Unknown Rubella: unknown RPR/VDRL: Negative GBS Status: Unknown HBsAG: Negative Review of Systems Constitutional: No symptom reported Ears, Nose, & Throat: No symptom reported Eyes: No symptom reported Pulmonary/Respiratory: No symptom reported Cardiovascular: No symptom reported Gastrointestinal: No symptom reported Genitourinary: No symptom reported Musculoskeletal: No symptom reported Skin: No symptom reported Psychiatric: No symptom reported Endocrine: No symptom reported Hemotologic/Lymphatic: No symptom reported OB Admission Exam Physical Exam HEENT: TMs Normal, Fontanelles Normal, Nasal Mucosa Normal, Eyes non-injected, Oropharynx Normal, PERRLA, Moist Membranes, EOMI Heart: Rhythm Normal Lungs: Clear Abdomen: Non tender Extremities: Normal Reflexes: Normal Cervical Dilatation: Fingertip Effacement: 50% Station: -3 Membranes: Ruptured Amniotic Fluid: Clear Heart Rate: 130's Accelerations: Accelerations Present Decelerations: No Decelerations Short Term Variability: Present Coin Rolling Machine Operator Variability: Average (6-25) Contractions on Admission: >10 Minutes Apart Intensity: Mild OB Plan Plan Admitting Diagnosis: iup at 38+wks with prom gdm Plan: Expectant Management Induction Methd: Misoprostol protocol Other Plan: informed consent obtained,pt was given option of pcs due to gdm and noncompliancy pt wishes to proceed with trial of labor.she understands the possib of shoulder dystocia other morb/mort related issues with gdm Visit Coding OBGYN Date of Service: August 26, 2024 Billing Provider: RE WORTHINGTON DO EATING DISORDER PSYCHOLOGIST Common Visit Codes: [id number] OBS CARE (HIGH) EATING DISORDER PSYCHOLOGIST Procedure Codes: 35053-98- NON-STRESS TEST RE WORTHINGTON DO August 26, 2024 12:36
[2024-08-26] MEDS ORDERED: BUTORPHANOL TARTRATE 2 MG/1 ML VIAL IV PRN ×2 (14:45)
[2024-08-26] MEDS ORDERED: LIDOCAINE 2%HCL (LOCAL ANESTH.) INJ 20ML MDV IJ PRN (14:45)
[2024-08-26] MEDS ORDERED: LACTATED RINGER'S 1,000 ML IV SCH (14:45)
[2024-08-26] MEDS ORDERED: ACCU-CHEK COMFORT CURVE STRIP VI SCH (16:00)
[2024-08-26] MEDS: LACTATED RINGER'S 1,000 ML IV SCH (17:24)
[2024-08-26] MEDS: ROPIVACAINE HCL 200 ML ONE (17:28)
[2024-08-26] MEDS: miSOPROStol 50 MCG per PRE-CUT 1/2 TAB PO PRN (17:39)
[2024-08-26] MEDS ORDERED: PENICILLIN G POTASSIUM 2,500,000 UNITS in D5W 5% 50 ML IV SCH ×2 (18:45→23:00)
[2024-08-26] MEDS ORDERED: PENICILLIN G POT 5MIL/D5 50ML 50 ML IV ONE (19:00)
[2024-08-26] MEDS: PENICILLIN G POT 5MIL/D5 50ML 50 ML IV ONE (19:39)
[2024-08-26] MEDS: D5W/LACTATED RINGERS 1,000 ML IV SCH (19:45)
[2024-08-26] MEDS: ACETAMINOPHEN 325 MG TAB PO PRN (21:00)
[2024-08-26] MEDS: ONDANSETRON HCL 4 MG/2 ML VIAL IV PRN (21:02)
--- NOTE | 2024-08-26 21:24 | DVHPN2 ---
CNM Labor Progress Note Date and Time Seen Date Seen: August 26, 2024 Time Seen: 20:10 Subjective Patient reports: No new complaints Objective Vital Signs VSS Afebrile Monitoring Method Monitoring Method: External Heart Rate Heart Rate Baseline: 125 Heart Rate Variability: Moderate Presence of FHR Accelerations: Yes Presence of FHR Decelerations: No Changes in Trends of Patterns: No Contractions Contractions Frequency: Other (Irregular) Duration of Contraction: 60 Contractions Intensity: Mild Contractions Resting Tone: Relaxed Membranes Membranes: Ruptured Amniotic Fluid Color: Clear Vaginal Exam Vaginal Exam Dilation: 3 Vaginal Exam Effacement: 70 Vaginal Exam Station: -2 Vaginal Exam Presentation: VTX Vaginal Exam Show: Small Medications Medications - Pitocin: No Medication - Epidural: Yes Lab Results Lab Results Current Medications Medications (Trade) Dose Ordered Sig/Edith Start Time Stop Time Status Last Admin Dose Admin Lactated Ringer's 1,000 ml @ 125 mls/hr Q8H 08/26/24 14:45 08/26/24 19:44 DC 08/26/24 17:24 125 MLS/HR Penicillin G Potassium 50 ml @ 100 mls/hr ONCE ONCE 08/26/24 14:45 08/26/24 15:14 DC 08/26/24 19:39 100 MLS/HR Penicillin G Potassium 8666260 units/Dextrose 50 ml @ 100 mls/hr Q4H 08/26/24 18:45 Diagnostic Test (Pha) (Accu-Chek Comfort Curve T) 1 strip Q2HR 08/26/24 16:00 Celestina Thurston (Tucks) 1 pad PRN PRN 08/26/24 14:45 Sodium Lauryl Sulfate (Phisoderm) 240 ml PRN PRN 08/26/24 14:45 Benzocaine (Dermoplast) 1 applic PRN PRN 08/26/24 14:45 Misoprostol (Cytotec) 50 mcg Q4HPRN PRN 08/26/24 14:45 08/26/24 17:39 50 MCG Lidocaine HCl (Xylocaine) 20 ml ONCE PRN 08/26/24 14:45 Lactated Ringer's 1,000 ml @ 125 mls/hr Q8H 08/26/24 14:45 Dextrose/Lactated Ringer's 1,000 ml @ 125 mls/hr Q8H 08/26/24 19:00 08/26/24 19:45 125 MLS/HR Ondansetron HCl (Zofran) 4 mg Q6HPRN PRN 08/26/24 20:15 08/26/24 21:02 4 MG Acetaminophen (Tylenol Tablet) 650 mg Q6HP PRN 08/26/24 20:15 08/26/24 21:00 650 MG Laboratory Tests Test 08/26/24 19:26 08/26/24 11:27 08/26/24 10:45 08/26/24 10:42 Range/Units POC Glucose 71 70-106 mg/dl White Blood Count 7.4 4.4-10.8 10^3/uL Red Blood Count 4.41 4.0-5.20 10^6/uL Hemoglobin 12.1 L 12.2-16.2 g/dL Hematocrit 35.7 L 36.0-46.0 % Mean Corpuscular Volume 81.0 80.0-100.0 fL Mean Corpuscular Hemoglobin 27.5 L 28.0-32.0 pg Mean Corpuscular Hemoglobin Concent 34.0 32.0-36.0 g/dL Red Cell Distribution Width 14.2 11.8-14.3 % Platelet Count 198 140-450 10^3/uL Mean Platelet Volume 9.5 6.9-10.8 fL Neutrophils (%) (Auto) 75.0 37.0-80.0 % Lymphocytes (%) (Auto) 17.6 10.0-50.0 % Monocytes (%) (Auto) 6.7 0.0-12.0 % Eosinophils (%) (Auto) 0.4 0.0-7.0 % Basophils (%) (Auto) 0.3 0.0-2.0 % Neutrophils # (Auto) 5.5 1.6-8.6 10 ^3/uL Lymphocytes # (Auto) 1.3 0.4-5.4 10 ^3/uL Monocytes # (Auto) 0.5 0-1.3 10 ^3/uL Eosinophils # (Auto) 0 0-0.8 10 ^3/uL Basophils # (Auto) 0 0-0.2 10 ^3/uL Nucleated Red Blood Cells 0.1 % Prothrombin Time 9.6 9.3-11.8 sec Prothrombin Time INR 0.90 0.9-1.15 Activated Partial Thromboplast Time 26.6 24.5-34.5 SEC Sodium Level 138 136-145 mmol/L Potassium Level 3.8 3.5-5.1 mmol/L Chloride Level 106 98-107 mmol/L Carbon Dioxide Level 22 20-31 mmol/L Anion Gap 10 5-15 Blood Urea Nitrogen 8 L 9-23 mg/dL Creatinine 0.51 L 0.550-1.02 mg/dL Glomerular Filtration Rate Calc 132 >90 mL/min BUN/Creatinine Ratio 15.7 10.0-20.0 Serum Glucose 74 74-106 mg/dL Hemoglobin A1c 5.7 <5.7 % A1C Uric Acid 6.2 3.1-7.8 mg/dL Calcium Level 9.0 8.7-10.4 mg/dL Total Bilirubin 0.3 0.2-1.0 mg/dL Aspartate Amino Transferase (AST) 14 13-40 U/L Alanine Aminotransferase (ALT) < 9 7-40 U/L Alkaline Phosphatase 151 H 46-116 U/L Total Protein 6.4 5.7-8.2 g/dL Albumin 3.9 3.2-4.8 g/dL Treponema pallidum Antibody Non-reactive Negative Hepatitis B Surface Antigen Negative Negative Hepatitis C Antibody Negative Negative HIV (1&2) Antibody Negative Negative Placental Uxcki-0-Yosooxhqxkieo Positive Urine Color Light-yellow Yellow Urine Clarity Clear Clear Urine pH 7.0 5.0-9.0 Urine Specific [place] 1.011 1.001-1.035 Urine Protein Negative Negative Urine Ketones Negative Negative Urine Blood Negative Negative /uL Urine Nitrite Negative Negative Urine Bilirubin Negative Negative Urine Urobilinogen Normal Negative mg/dL Urine Leukocyte Esterase Negative Negative /uL Urine RBC 2 0 - 4 /hpf Urine Microscopic WBC 1 0-5 /HPF Urine Squamous Epithelial Cells Few <5 /hpf Urine Bacteria None seen None Seen /hpf Urine Glucose Normal Normal mg/dL Urine Opiates Screen Neg NEGATIVE Urine Fentanyl Screen Neg NEGATIVE Urine Barbiturates Screen Neg NEGATIVE Urine Phencyclidine Screen Neg NEGATIVE Urine Amphetamines Screen Neg NEGATIVE Urine Benzodiazepines Screen Neg NEGATIVE Urine Cocaine Screen Neg NEGATIVE Urine Cannabinoids Screen Neg NEGATIVE Assessment Assessment Category 1 tracing GDMA2 - BG 71 PROM - GBS neg, afebrile Plan Plan Start Pitocin augmentation per protocol Continue close BG monitoring Anticipate Plan discussed with: Patient, Spouse Visit Coding OBGYN Date of Service: August 26, 2024 Billing Provider: HCICHO MCKEON CNM TELEPHONE APPOINTMENT CLERK Common Visit Codes: NOT BILLABLE CHICHO MCKEON CNM August 26, 2024 21:24
[2024-08-26] MEDS ORDERED: TERBUTALINE SULFATE 1 MG/ML 1ML VIAL SC PRN (21:30)
[2024-08-26] MEDS: LACT. RINGERS/OXYTOCIN 20UNITS 1,000 ML IV SCH (22:00)
[2024-08-27] MEDS: ceFAZolin 2 GM/D5W50ml 50 ML IV ONE (02:40)
--- NOTE | 2024-08-27 04:13 | DVHPN2 ---
CNM Labor Progress Note Date and Time Seen Date Seen: August 27, 2024 Time Seen: 04:05 Subjective Patient reports: No new complaints (Not feeling pressure yet) Objective Vital Signs VSS. Afebrile Monitoring Method Monitoring Method: External Heart Rate Heart Rate Variability: Moderate Presence of FHR Accelerations: Yes Presence of FHR Decelerations: No Changes in Trends of Patterns: No Contractions Contractions Frequency: Other (2-4) Duration of Contraction: 60 Contractions Intensity: Moderate Contractions Resting Tone: Relaxed Membranes Membranes: Ruptured Amniotic Fluid Color: Clear Vaginal Exam Vaginal Exam Dilation: 10 Vaginal Exam Effacement: 100 Vaginal Exam Station: +1 Vaginal Exam Presentation: VTX Vaginal Exam Show: Small Medications Medications - Pitocin: Yes Medication - Epidural: Yes Lab Results Lab Results I & O 08/27/24 07:00 Intake Total 1000 ml Balance 1000 ml Intake IV Total 1000 ml Current Medications Medications (Trade) Dose Ordered Sig/Edith Start Time Stop Time Status Last Admin Dose Admin Lactated Ringer's 1,000 ml @ 125 mls/hr Q8H 08/26/24 14:45 08/26/24 19:44 DC 08/26/24 17:24 125 MLS/HR Penicillin G Potassium 50 ml @ 100 mls/hr ONCE ONCE 08/26/24 14:45 08/26/24 21:43 DC 08/26/24 19:39 100 MLS/HR Diagnostic Test (Pha) (Accu-Chek Comfort Curve T) 1 strip Q2HR 08/26/24 16:00 Celestina Thurston (Tucks) 1 pad PRN PRN 08/26/24 14:45 Sodium Lauryl Sulfate (Phisoderm) 240 ml PRN PRN 08/26/24 14:45 Benzocaine (Dermoplast) 1 applic PRN PRN 08/26/24 14:45 Misoprostol (Cytotec) 50 mcg Q4HPRN PRN 08/26/24 14:45 08/26/24 17:39 50 MCG Lidocaine HCl (Xylocaine) 20 ml ONCE PRN 08/26/24 14:45 Lactated Ringer's 1,000 ml @ 125 mls/hr Q8H 08/26/24 14:45 Dextrose/Lactated Ringer's 1,000 ml @ 125 mls/hr Q8H 08/26/24 19:00 08/26/24 19:45 125 MLS/HR Ondansetron HCl (Zofran) 4 mg Q6HPRN PRN 08/26/24 20:15 08/26/24 21:02 4 MG Acetaminophen (Tylenol Tablet) 650 mg Q6HP PRN 08/26/24 20:15 08/26/24 21:00 650 MG Oxytocin 1,000 ml @ 6 ml/hr Q24H 08/26/24 21:30 08/26/24 22:00 6 ML/HR Terbutaline Sulfate (Brethine Inj) 0.25 mg ONCE PRN 08/26/24 21:30 Oxytocin 500 ml @ 999 mls/hr Q31M ONCE 08/26/24 21:30 08/26/24 22:00 DC Oxytocin 500 ml @ 125 mls/hr Q4H ONCE 08/26/24 22:00 08/27/24 01:59 DC Cefazolin Sodium 50 ml @ 100 mls/hr Q8HP 08/27/24 10:30 Cefazolin Sodium/ Dextrose 50 ml @ 50 mls/hr ONCE ONCE 08/27/24 02:15 08/27/24 03:14 DC 08/27/24 02:40 50 MLS/HR Laboratory Tests Test 08/27/24 03:26 08/27/24 02:39 08/26/24 11:27 08/26/24 10:45 Range/Units POC Glucose 74 70-106 mg/dl Rubella Antibody Positive White Blood Count 7.4 4.4-10.8 10^3/uL Red Blood Count 4.41 4.0-5.20 10^6/uL Hemoglobin 12.1 L 12.2-16.2 g/dL Hematocrit 35.7 L 36.0-46.0 % Mean Corpuscular Volume 81.0 80.0-100.0 fL Mean Corpuscular Hemoglobin 27.5 L 28.0-32.0 pg Mean Corpuscular Hemoglobin Concent 34.0 32.0-36.0 g/dL Red Cell Distribution Width 14.2 11.8-14.3 % Platelet Count 198 140-450 10^3/uL Mean Platelet Volume 9.5 6.9-10.8 fL Neutrophils (%) (Auto) 75.0 37.0-80.0 % Lymphocytes (%) (Auto) 17.6 10.0-50.0 % Monocytes (%) (Auto) 6.7 0.0-12.0 % Eosinophils (%) (Auto) 0.4 0.0-7.0 % Basophils (%) (Auto) 0.3 0.0-2.0 % Neutrophils # (Auto) 5.5 1.6-8.6 10 ^3/uL Lymphocytes # (Auto) 1.3 0.4-5.4 10 ^3/uL Monocytes # (Auto) 0.5 0-1.3 10 ^3/uL Eosinophils # (Auto) 0 0-0.8 10 ^3/uL Basophils # (Auto) 0 0-0.2 10 ^3/uL Nucleated Red Blood Cells 0.1 % Prothrombin Time 9.6 9.3-11.8 sec Prothrombin Time INR 0.90 0.9-1.15 Activated Partial Thromboplast Time 26.6 24.5-34.5 SEC Sodium Level 138 136-145 mmol/L Potassium Level 3.8 3.5-5.1 mmol/L Chloride Level 106 98-107 mmol/L Carbon Dioxide Level 22 20-31 mmol/L Anion Gap 10 5-15 Blood Urea Nitrogen 8 L 9-23 mg/dL Creatinine 0.51 L 0.550-1.02 mg/dL Glomerular Filtration Rate Calc 132 >90 mL/min BUN/Creatinine Ratio 15.7 10.0-20.0 Serum Glucose 74 74-106 mg/dL Hemoglobin A1c 5.7 <5.7 % A1C Uric Acid 6.2 3.1-7.8 mg/dL Calcium Level 9.0 8.7-10.4 mg/dL Total Bilirubin 0.3 0.2-1.0 mg/dL Aspartate Amino Transferase (AST) 14 13-40 U/L Alanine Aminotransferase (ALT) < 9 7-40 U/L Alkaline Phosphatase 151 H 46-116 U/L Total Protein 6.4 5.7-8.2 g/dL Albumin 3.9 3.2-4.8 g/dL Treponema pallidum Antibody Non-reactive Negative Hepatitis B Surface Antigen Negative Negative Hepatitis C Antibody Negative Negative HIV (1&2) Antibody Negative Negative Placental Pqmtm-4-Yuipoozbidicu Positive Test 08/26/24 10:42 Range/Units Urine Color Light-yellow Yellow Urine Clarity Clear Clear Urine pH 7.0 5.0-9.0 Urine Specific [place] 1.011 1.001-1.035 Urine Protein Negative Negative Urine Ketones Negative Negative Urine Blood Negative Negative /uL Urine Nitrite Negative Negative Urine Bilirubin Negative Negative Urine Urobilinogen Normal Negative mg/dL Urine Leukocyte Esterase Negative Negative /uL Urine RBC 2 0 - 4 /hpf Urine Microscopic WBC 1 0-5 /HPF Urine Squamous Epithelial Cells Few <5 /hpf Urine Bacteria None seen None Seen /hpf Urine Glucose Normal Normal mg/dL Urine Opiates Screen Neg NEGATIVE Urine Fentanyl Screen Neg NEGATIVE Urine Barbiturates Screen Neg NEGATIVE Urine Phencyclidine Screen Neg NEGATIVE Urine Amphetamines Screen Neg NEGATIVE Urine Benzodiazepines Screen Neg NEGATIVE Urine Cocaine Screen Neg NEGATIVE Urine Cannabinoids Screen Neg NEGATIVE Assessment Assessment 38.5 weeks gestation PROM Category 1 tracing Plan Plan Continue labor management Start pushing when patient feels urge to push Anticipate Plan discussed with: Patient Visit Coding OBGYN Date of Service: August 27, 2024 Billing Provider: CHICHO MCKEON CNM LABORER POULTRY HATCHERY Common Visit Codes: NOT BILLABLE CHICHO MCKEON CNM August 27, 2024 04:13
[2024-08-27] MEDS: WITCH HAZEL-GLYCERIN PAD TOP PRN (04:29)
[2024-08-27] MEDS: PHISODERM TOP SOLN 240ML BTL TOP PRN (04:29)
[2024-08-27] MEDS: DERMOPLAST 60ML BOTTLE TOP PRN (04:29)
[2024-08-27] MEDS: METHYLERGONOVINE MALEATE 0.2 MG/ML AMP IM ONE ×2 (04:54→06:31)
[2024-08-27] MEDS: LACT. RINGERS/OXYTOCIN 20UNITS 500 ML IV ONE ×2 (06:16→06:19)
--- NOTE | 2024-08-27 06:38 | LDN2 ---
Labor and Delivery Note Date 08/27/24 Age 24 1 Para 1 EDC 5-24 EGA 38wks Diagnosis srom,gdm Vaginal Delivery: VTX Vacuum Assisted: No Placenta: Spontaneous Sex: Female Weight 7-3 Apgars 8-9 Nuchal Cord Transected: No Amniotic Fluid: Clear Anesthesia epidural Episiotomy: No Extension: Yes (2nd deg perineal lac) Repaired with 2-0 chromic EBL 300ml Labs Laboratory Tests 08/27/24 02:39: Rubella Antibody Positive 08/26/24 11:27: Hepatitis B Surface Antigen Negative, HIV (1&2) Antibody Negative Blood Bank 08/26/24 11:27: Blood Type B POSITIVE Complications none Conditions stable Comments/Significant Med Marsha spec exam no cxal lac Visit Coding OBGYN Date of Service: August 27, 2024 Billing Provider: RE WORTHINGTON DO TOMATO PULPER OPERATOR Common Visit Codes: 08265-HMW/OBS SAME DATE (HIGH) TOMATO PULPER OPERATOR Procedure Codes: [id number] DELIVERY ONLY RE WORTHINGTON DO August 27, 2024 06:38
[2024-08-27] MEDS ORDERED: ceFAZolin 1GM/50ML 50 ML IV SCH (10:30)
[2024-08-27] MEDS: ceFAZolin 1GM/50ML 50 ML IV SCH (11:00)
[2024-08-27] MEDS: IBUPROFEN 600 MG TAB PO PRN (11:01)
[2024-08-27 15:00] VITALS: BP 116/69; PULSE 84; RESP 16; TEMP 97.8; O2SAT 98
[2024-08-27 18:45] VITALS: BP 112/68; PULSE 78; RESP 16; TEMP 98; O2SAT 97
[2024-08-27 23:00] VITALS: BP 114/57; PULSE 87; RESP 15; TEMP 98.1; O2SAT 97
--- NOTE | 2024-08-28 02:40 | DVHPN2 ---
Chief Complaints Patient reports: No new complaints (Not feeling pressure yet), Feels better Nursing reports: No new complaints Objective Vitals Vital Signs Date Time Temp Pulse Resp B/P (MAP) Pulse Ox O2 Delivery O2 Flow Rate FiO2 08/27/24 23:00 98.1 87 15 114/57 (76) 97 98.1 08/27/24 18:45 Room Air Medications Current Medications Medications (Trade) Dose Ordered Sig/Edith Route PRN Reason Start Time Stop Time Status Last Admin Cefazolin Sodium 50 ml @ 100 mls/hr Q8H IV 08/27/24 11:00 08/27/24 18:47 Ibuprofen (Motrin Tablet) 600 mg Q6HP PRN PO MODERATE PAIN (4-6 PAIN SCALE) 08/27/24 10:30 08/28/24 02:10 General: Normal Lungs: Normal Cardiovascular: Normal Abdominal: Soft Musculoskeletal: Normal Extremities: Normal Studies Laboratory Tests 08/26/24 11:27 Test 08/26/24 11:27 Range/Units Serum Glucose 74 74-106 mg/dL Ass/Plan Assessment S/P Plan DC HOME FU IN 2WKS Visit Coding OBGYN Date of Service: August 28, 2024 Billing Provider: RE WORTHINGTON DO FROG FARMER Common Visit Codes: [id number] INP/OBS CARE(HIGH), 51461-LHI/OBS DISCH DAY >30MIN FROG FARMER Procedure Codes: [id number] DELIVERY ONLY RE WORTHINGTON DO August 28, 2024 02:40
--- NOTE | 2024-08-28 02:41 | DVHDS2 ---
Obstetrics Discharge Summary Obstetrics Discharge Summary Date of Admission: August 26, 2024 Date of Discharge: August 28, 2024 Reason For Admission: Onset of Labor Procedures: NST Intrapartum Procedures: Spontaneous vaginal deliv Procedures: None Operative Complicat: Laceration (Perineal) Discharge Diagnosis: Term -Delivered, Others (GDM) Discharge Information: Activity (Other), Diet (Routine), Medications (None), Instructions (Routine), Discharge to (Home), Discarge date (-) Visit Coding OBGYN Date of Service: August 28, 2024 Billing Provider: RE WORTHINGTON DO SPECIMEN TECHNICIAN Common Visit Codes: 72170-LKG/OBS SAME DATE (HIGH), 75499-ZIH/OBS DISCH DAY >30MIN SPECIMEN TECHNICIAN Procedure Codes: 30526-GGW DELIVERY ONLY RE WORTHINGTON DO August 28, 2024 02:41
[2024-08-28 03:00] VITALS: BP 117/75; PULSE 79; RESP 17; TEMP 98.3; O2SAT 100
[2024-08-28 07:20] VITALS: BP 119/75; PULSE 87; RESP 15; TEMP 98.7; O2SAT 97
[2024-08-28 11:10] VITALS: BP 108/63; PULSE 85; RESP 14; TEMP 98.6; O2SAT 97
[2024-08-28] MEDS ORDERED: ACETAMINOPHEN 325 MG TAB PO PRN (12:30)
[2024-08-28 12:49] VITALS: TEMP 37
[2024-08-28] MEDS: ACETAMINOPHEN 325 MG TAB PO PRN (13:11)
== END 2024-08-28 16:00 | disposition home or self-care (01) | DRG 560 ==
LOC: UNDOADMOB 09:47 → LDRP 09:47 → OBSVTOIN 12:30 → LDRP 12:31
PROVIDERS: ADMIT Obstetrics & Gynecology; ATTEND Obstetrics & Gynecology
PROC: 10E0XZZ Delivery of Products of Conception, External Approach (ICD-10-PCS; principal; 2024-08-27)
PROC: 0KQM0ZZ Repair Perineum Muscle, Open Approach (ICD-10-PCS; 2024-08-27)
PROC: 3E0R3BZ Introduction of Anesthetic Agent into Spinal Canal, Percutaneous Approach (ICD-10-PCS; 2024-08-27)
PROC: 00HU33Z Insertion of Infusion Device into Spinal Canal, Percutaneous Approach (ICD-10-PCS; 2024-08-27)
DX: O42.90 Premature rupture of membranes, unspecified as to length of time between rupture and onset of labor, unspecified weeks of gestation (principal); Z37.0 Single live birth; O24.420 Gestational diabetes mellitus in childbirth, diet controlled; O70.1 Second degree perineal laceration during delivery; Z3A.38 38 weeks gestation of pregnancy; Z91.199 Patient's noncompliance with other medical treatment and regimen due to unspecified reason; Z79.899 Other long term (current) drug therapy; Z88.8 Allergy status to other drugs, medicaments and biological substances
CPT/HCPCS: 36415; 59025; 59409; 62282; 76805; 76819; 80053; 80307; 81001; 81002; 82948; 82962; 83036; 84112; 84550; 85025; 85610; 85730; 86703; 86762; 86780; 86803; 86850; 86900; 86901; 87340; 94760; 94762; 96360; 96361; 96365; 96366; 96372; 96374; G0378; J2405; J2540; J2590; J7060